=== PATIENT | female | born 1970 ===

== ENCOUNTER 2024-06-29 04:04 | Day surgery (SDC) | payer BC ==
[2024-06-25 13:09] VITALS: BMI 28.6
[~2024-06-29 04:04] MED LIST: ONDANSETRON 4 MG/2 ML VIAL IVPUSH PRN; oxyCODONE HCL 5 MG TABLET PO PRN
[2024-06-29] MEDS ORDERED: ONDANSETRON 4 MG/2 ML VIAL ONE (08:03)
[2024-06-29] MEDS ORDERED: KETOROLAC TROMETHAMINE 30 MG/1 ML VIAL ONE (08:03)
[2024-06-29] MEDS ORDERED: DEXAMETHASONE SOD PHOSPHATE 4 MG/1 ML VIAL ONE (08:03)
[2024-06-29] MEDS ORDERED: LIDOCAINE HCL/PF 2% SDV 5ML VIAL ONE (08:06)
[2024-06-29] MEDS ORDERED: PROPOFOL 40 ML ONE (08:07)
[2024-06-29] MEDS ORDERED: MIDAZOLAM HCL 2 MG/2 ML SINGLE DOSE VIAL ONE (08:10)
[2024-06-29] MEDS ORDERED: ACETAMINOPHEN INJECTION 100 ML ONE (08:47)
[2024-06-29] MEDS ORDERED: ONDANSETRON 4 MG/2 ML VIAL IVPUSH PRN (09:04)
[2024-06-29] MEDS ORDERED: oxyCODONE HCL 5 MG TABLET PO PRN (09:04)
[2024-06-29] MEDS ORDERED: IBUPROFEN 600 MG TABLET (FP) PO PRN (09:04)
[2024-06-29] MEDS ORDERED: IBUPROFEN 800 MG/8 ML IJ IVPB PRN (09:04)
[2024-06-29] MEDS: ELECTROLYTE-148 SOLN 1,000 ML IV SCH (10:34)
[2024-06-29 11:24] VITALS: RESP 18
[2024-06-29 11:51] VITALS: PULSE 58; TEMP 97.4
[2024-06-29 11:52] VITALS: BP 130/72
== END 2024-06-29 12:15 | disposition home or self-care (01) ==
LOC: JASU-SURG 04:04
PROVIDERS: ATTEND Obstetrics & Gynecology
PROC: 0UBC7ZX Excision of Cervix, Via Natural or Artificial Opening, Diagnostic (ICD-10-PCS; 2024-06-29)
PROC: 0UB98ZZ Excision of Uterus, Via Natural or Artificial Opening Endoscopic (ICD-10-PCS; principal; 2024-06-29 08:30)
DX: N84.1 Polyp of cervix uteri (principal); N84.0 Polyp of corpus uteri; N85.00 Endometrial hyperplasia, unspecified
CPT/HCPCS: 81025; 86850; 86900; 86901; 88305-TC; 94760; J0131